=== PATIENT | female | born 1995 | race Caucasian/White ===

== ENCOUNTER 2016-12-10 01:35 | Emergency (ER) | payer MEDICAID ==
[2016-12-10 02:43] LABS: HCG SERUM NEGATIVE (NEGATIVE)
== END 2016-12-10 05:20 | disposition home or self-care (01) ==
LOC: D.ER 01:35
PROVIDERS: Emergency Medicine
DX: S16.1XXA Strain of muscle, fascia and tendon at neck level, initial encounter (principal); V49.3XXA Car occupant (driver) (passenger) injured in unspecified nontraffic accident, initial encounter; Y93.89 Activity, other specified; Y92.481 Parking lot as the place of occurrence of the external cause

== ENCOUNTER 2018-09-01 09:50 | Emergency (ER) | payer MEDICAID ==
[~2018-09-01] VITALS: Ht 160 cm; Wt 81.8 kg
[2018-09-01 09:55] VITALS: Ht 160 cm; Wt 81.8 kg
[2018-09-01 10:50] LABS: BASOPHILS 0.3 % (0-2); HEMATOCRIT 38.1 % (36.0-48.0); HEMOGLOBIN 12.3 g/dL (12-16); IMMATURE GRANULOCYTES 0.1 % (0-5); LYMPHOCYTES 25.9 % (15-50); MCH 26.1 pg (26.0-34.0); MCHC 32.3 g/dL (31.0-37.0); MCV 80.7 fL (80.0-100.0); MONOCYTES 7.2 % (2-11); NEUTROPHILS 65.5 % (40-80); PLATELET COUNT 336 10x3/uL (130-400); RBC 4.72 10x6/uL (4.00-5.40); RDW 14.5 % (11.5-14.5); WBC 7.2 10x3/uL (4.8-10.8)
[2018-09-01 10:56] LABS: APTT 23.5 SECONDS (22.8-39.4); INR 1.03 (0.85-1.17)
[2018-09-01 11:01] LABS: ALBUMIN 3.7 g/dL (3.4-5.0); ALKALINE PHOSPHATASE 47 U/L (46-116); ALT (SGPT) 64 U/L (10-68); CALC OSMOLALITY 277 mosm/kg (275-300); CALCIUM 8.8 mg/dL (8.5-10.1); CARBON DIOXIDE 24.8 mmol/L (21.0-32.0); CHLORIDE - SERUM 104 mmol/L (98-107); CREATININE - SERUM 0.8 mg/dL (0.6-1.3); GLUCOSE 96 mg/dL (74-106); POTASSIUM - SERUM 3.7 mmol/L (3.5-5.1); PROTEIN - SERUM 8.1 g/dL (6.4-8.2); SODIUM 139 mmol/L (136-145); UREA NITROGEN 13 mg/dL (7-18); eGFR NON AFRICAN AMERICAN > 90 mL/min (90-120)
[2018-09-01 11:12] LABS: APPEARANCE CLEAR (CLEAR); BILIRUBIN NEGATIVE (NEGATIVE); COLOR YELLOW (YELLOW); GLUCOSE NEGATIVE (NEGATIVE); KETONE NEGATIVE (NEGATIVE); NITRITE NEGATIVE (NEGATIVE); PROTEIN NEGATIVE (NEGATIVE); SPECIFIC GRAVITY 1.015 (1.005-1.020); UROBILINOGEN NORMAL (NORMAL)
[2018-09-01 11:13] LABS: CKMB 2.1 U/L (0.0-3.6); CREATINE KINASE 135 UL (21-215); TROPONIN-I < 0.017 ng/mL (0.000-0.060)
[2018-09-01 15:45] VITALS: BP 106/82
== END 2018-09-01 15:47 | disposition home or self-care (01) ==
LOC: D.ER 09:50
PROVIDERS: Family Medicine
DX: N93.9 Abnormal uterine and vaginal bleeding, unspecified (principal); R50.9 Fever, unspecified; R51 Headache

== ENCOUNTER 2019-01-17 19:52 | Emergency (ER) | payer MEDICAID ==
[~2019-01-17] VITALS: Ht 160 cm; Wt 72.7 kg
[2019-01-17 20:00] VITALS: Ht 160 cm; Wt 72.7 kg
[2019-01-17 20:37] LABS: BASOPHILS 0.2 % (0-2); EOSINOPHILS 0.2 % (0-7); HEMATOCRIT 36.6 % (36.0-48.0); HEMOGLOBIN 11.7 g/dL (12-16); IMMATURE GRANULOCYTES 0.1 % (0-5); LYMPHOCYTES 23.5 % (15-50); MCH 25.1 pg (26.0-34.0); MCV 78.5 fL (80.0-100.0); MEAN PLATELET VOLUME 9.7 fL (7.4-10.4); MONOCYTES 6.5 % (2-11); NEUTROPHILS 69.5 % (40-80); PLATELET COUNT 292 10x3/uL (130-400); RBC 4.66 10x6/uL (4.00-5.40); WBC 9.5 10x3/uL (4.8-10.8)
[2019-01-17 20:38] LABS: APPEARANCE HAZY (CLEAR); BILIRUBIN NEGATIVE (NEGATIVE); COLOR DK YELLOW (YELLOW); GLUCOSE NEGATIVE (NEGATIVE); KETONE NEGATIVE (NEGATIVE); NITRITE NEGATIVE (NEGATIVE); PROTEIN TRACE mg/dL (NEGATIVE); RED CELLS - URINE >50 /hpf (0-5); SPECIFIC GRAVITY 1.025 (1.005-1.020); UROBILINOGEN NORMAL (NORMAL); WHITE CELLS - URINE 0-5 /hpf (0-5)
[2019-01-17 20:39] LABS: BACTERIA FEW /hpf (NONE SEEN); EPITHELIAL CELLS OCC /hpf (0-5)
[2019-01-17 20:40] LABS: HCG URINE NEGATIVE (NEGATIVE)
[2019-01-17 20:52] LABS: ALBUMIN 3.6 g/dL (3.4-5.0); ALKALINE PHOSPHATASE 55 U/L (46-116); ALT (SGPT) 44 U/L (10-68); BILIRUBIN - TOTAL 0.34 mg/dL (0.2-1.3); CALC OSMOLALITY 282 mosm/kg (275-300); CALCIUM 9.1 mg/dL (8.5-10.1); CARBON DIOXIDE 23.7 mmol/L (21.0-32.0); CHLORIDE - SERUM 106 mmol/L (98-107); CREATININE - SERUM 0.9 mg/dL (0.6-1.3); GLUCOSE 107 mg/dL (74-106); POTASSIUM - SERUM 3.5 mmol/L (3.5-5.1); PROTEIN - SERUM 7.4 g/dL (6.4-8.2); SODIUM 141 mmol/L (136-145); UREA NITROGEN 19 mg/dL (7-18); eGFR NON AFRICAN AMERICAN 81 mL/min (90-120)
[2019-01-17] MEDS ORDERED: OMEPRAZOLE40 MG PO (21:04)
[2019-01-17 21:11] VITALS: BP 133/76
--- NOTE | 2019-01-17 21:59 | NUR ---
DR JJ NOTIFIED AND REVIEWED PT's BEHAVIOR AND ASSESSMENT RESULTS. PT IS A LOW RISK PER DR JJ. DR JJ STATED TO GIVE RESOURCES TO PT AT TIME OF DISCHARGE, NO FURTHER ORDERS AT THIS TIME, RESOURCES REVIEWED WITH PT AND SHE VERBALIZED UNDERSTANDING.
== END 2019-01-17 21:11 | disposition home or self-care (01) ==
LOC: D.ER 19:52
PROVIDERS: Emergency Medicine
DX: K21.9 Gastro-esophageal reflux disease without esophagitis (principal); K29.70 Gastritis, unspecified, without bleeding

== ENCOUNTER 2021-01-04 00:24 | Emergency (ER) | payer SELFPAY ==
[~2021-01-04] VITALS: Ht 160 cm; Wt 77.1 kg
[~2021-01-04 00:24] MED LIST: OMEPRAZOLE40 MG PO
[2021-01-04 00:27] VITALS: Ht 160 cm; Wt 77.1 kg
[2021-01-04] MEDS ORDERED: AMOXICILLIN875 MG PO (02:34)
[2021-01-04] MEDS ORDERED: HYDROCODON-ACE1 EAC7 PO (02:34)
[2021-01-04 02:59] VITALS: BP 114/66
== END 2021-01-04 02:59 | disposition home or self-care (01) ==
LOC: D.ER 00:24
DX: K01.1 Impacted teeth (principal); R51.9 Headache, unspecified; K21.9 Gastro-esophageal reflux disease without esophagitis

== ENCOUNTER 2021-01-28 10:21 | Emergency (ER) | payer SELFPAY ==
[~2021-01-28] VITALS: Ht 160 cm; Wt 77.3 kg
[~2021-01-28 10:21] MED LIST changes: +AMOXICILLIN875 MG PO; +HYDROCODON-ACE1 EAC7 PO
[2021-01-28 10:32] VITALS: Ht 160 cm; Wt 77.3 kg
[2021-01-28] MEDS ORDERED: ACETAMINOPHEN500 M1 PO (10:48)
[2021-01-28] MEDS ORDERED: ORAL ANALGESIC9 GM TOPICAL (10:48)
[2021-01-28] MEDS ORDERED: CEPHALEXIN500 M1 PO (10:48)
[2021-01-28] MEDS ORDERED: CYCLOBENZAPRINE10 MG PO (10:48)
[2021-01-28] MEDS ORDERED: IBUPROFEN800 MG PO (10:48)
[2021-01-28 11:10] VITALS: BP 148/94
== END 2021-01-28 11:11 | disposition home or self-care (01) ==
LOC: D.ER 10:21
DX: K00.7 Teething syndrome (principal); K08.89 Other specified disorders of teeth and supporting structures; K01.1 Impacted teeth; K21.9 Gastro-esophageal reflux disease without esophagitis